=== PATIENT | female | born 1985 | race Caucasian/White ===

== ENCOUNTER 2017-08-28 13:18 | Inpatient (IN) | payer OTHER ==
[2017-08-28] MEDS: LACTATED RINGER'S 1,000 ML IV ×2 (13:57→23:57)
[2017-08-28 13:59] LABS: ADD MAN DIFF? NO
[2017-08-28 14:00] LABS: ABNORMAL IP MESSAGE 1; BASOPHILS % 0.3 % (0.0-2.0); HEMATOCRIT 37.6 % (37.0-47.0); HEMOGLOBIN 12.9 g/dl (12.0-16.0); LYMPHOCYTES # 0.5 10^3/ul (0.8-2.9); LYMPHOCYTES % 5.2 % (15.0-51.0); MEAN CORPUSCULAR HEMOGLOBIN 31.4 pg (29.0-33.0); MEAN CORPUSCULAR HGB CONC 34.3 g/dl (32.0-37.0); MEAN CORPUSCULAR VOLUME 91.5 fl (82.0-101.0); MONOCYTE # 0.3 10^3/ul (0.3-0.9); MONOCYTES % 3.1 % (0.0-11.0); NEUTROPHILS % 90.8 % (39.0-77.0); PLATELET COUNT 213 10^3/UL (140-415); RED BLOOD COUNT 4.11 10^6/ul (4.20-5.40); RED CELL DISTRIBUTION WIDTH 13.1 % (11.5-14.5)
[2017-08-28 14:00] LABS: WHITE BLOOD COUNT 9.9 10^3/ul (4.8-10.8)
[2017-08-28] MEDS ORDERED: OXYTOCIN 30 UNITS/LR 500 ML IV ×2 (14:00→20:30)
[2017-08-28] MEDS ORDERED: METHYLERGONOVINE 0.2 MG INJ IM ×2 (14:00→20:30)
[2017-08-28] MEDS ORDERED: CEFAZOLIN 2 GM/50 ML (PMX) 50 ML IV (14:00)
[2017-08-28] MEDS ORDERED: CARBOPROST 250 MCG INJ IM ×2 (14:00→20:30)
[2017-08-28] MEDS ORDERED: MISOPROSTOL 200 MCG TAB PR ×2 (14:00→20:30)
[2017-08-28 14:01] LABS: POSITIVE DIFF @See below
[2017-08-28 14:20] LABS: INR 0.91; PROTIME 12.3 Sec (11.9-14.9)
[2017-08-28 14:21] LABS: PARTIAL THROMBOPLASTIN TIME 25.1 Sec (25.0-35.0)
[2017-08-28] MEDS ORDERED: morphine SULFATE/PF (10 MG/10 ML) INJ (15:14)
[2017-08-28] MEDS ORDERED: PHENYLephrine (100 MCG/ML) 5ML SYG (15:14)
[2017-08-28] MEDS ORDERED: ONDANSETRON 4 MG INJ (15:14)
[2017-08-28] MEDS ORDERED: OXYTOCIN 10 UNIT INJ (15:14)
[2017-08-28] MEDS ORDERED: BUPIVACAINE 0.75%/DEXT (SPINAL) 2 ML INJ (15:14)
[2017-08-28] MEDS: OXYTOCIN 30 UNITS/LR 500 ML IV ×3 (16:33→20:07)
[2017-08-28] MEDS ORDERED: morphine 2 MG INJ IV (17:00)
[2017-08-28] MEDS ORDERED: ONDANSETRON 4 MG INJ IV (17:00)
[2017-08-28] MEDS ORDERED: NALOXONE (0.4 MG/ML) INJ IV (17:00)
[2017-08-28] MEDS: KETOROLAC 30 MG INJ IV (19:52)
[2017-08-28] MEDS: DIPHENHYDRAMINE 50 MG INJ IV (19:53)
[2017-08-28] MEDS ORDERED: METHYLERGONOVINE 0.2 MG TAB PO (20:30)
[2017-08-28] MEDS ORDERED: LANOLIN 7 GM TUBE TOP (20:30)
[2017-08-28] MEDS ORDERED: HYDROCODONE/APAP (5/325) TAB PO (20:30)
[2017-08-28] MEDS: SENNA/DOCUSATE NA (8.6MG/50MG) TAB PO (21:21)
[2017-08-28] MEDS: CEFAZOLIN 1 GM/50 ML (PMX) 50 ML IVPB (21:21)
[2017-08-28] MEDS: IBUPROFEN 800 MG TAB PO (22:00)
[2017-08-28 22:01] LABS: RAPID PLASMA REAGIN NONREACTIVE (NR)
[2017-08-29] MEDS: KETOROLAC 30 MG INJ IV ×3 (01:45→13:58)
[2017-08-29] MEDS: LACTATED RINGER'S 1,000 ML IV ×3 (04:07→20:07)
[2017-08-29] MEDS: IBUPROFEN 800 MG TAB PO ×3 (06:00→21:20)
[2017-08-29 08:14] LABS: ADD MAN DIFF? NO
[2017-08-29 08:22] LABS: WHITE BLOOD COUNT 10.1 10^3/ul (4.8-10.8)
[2017-08-29 08:22] LABS: BASOPHILS % 0.2 % (0.0-2.0); EOSINOPHILS % 0.1 % (0.0-7.0); HEMATOCRIT 30.9 % (37.0-47.0); HEMOGLOBIN 10.5 g/dl (12.0-16.0); LYMPHOCYTES # 1.3 10^3/ul (0.8-2.9); LYMPHOCYTES % 12.3 % (15.0-51.0); MEAN CORPUSCULAR HEMOGLOBIN 31.2 pg (29.0-33.0); MEAN CORPUSCULAR VOLUME 91.7 fl (82.0-101.0); MEAN PLATELET VOLUME 10.2 fl (7.4-10.4); MONOCYTE # 0.6 10^3/ul (0.3-0.9); MONOCYTES % 5.4 % (0.0-11.0); NEUTROPHIL # 8.2 10^3/ul (1.6-7.5); NEUTROPHILS % 81.1 % (39.0-77.0); PLATELET COUNT 177 10^3/UL (140-415); RED BLOOD COUNT 3.37 10^6/ul (4.20-5.40); RED CELL DISTRIBUTION WIDTH 13.4 % (11.5-14.5)
[2017-08-29 08:40] LABS: ANION GAP 9 (8-16); BLOOD UREA NITROGEN 10 mg/dl (7-20); CALCIUM 8.4 mg/dl (8.4-10.2); CARBON DIOXIDE 26 mmol/L (21-31); CHLORIDE 107 mmol/L (97-110); CREATININE 0.54 mg/dl (0.44-1.00); GLUCOSE 91 mg/dl (70-220); POTASSIUM 3.7 mmol/L (3.5-5.1); SODIUM 138 mmol/L (135-144)
[2017-08-29] MEDS: SENNA/DOCUSATE NA (8.6MG/50MG) TAB PO ×2 (09:21→21:20)
[2017-08-29] MEDS: HYDROCODONE/APAP (5/325) TAB PO (17:09)
[2017-08-30] MEDS: HYDROCODONE/APAP (5/325) TAB PO ×3 (00:01→18:23)
[2017-08-30] MEDS: IBUPROFEN 800 MG TAB PO ×3 (05:50→20:37)
[2017-08-30] MEDS: SENNA/DOCUSATE NA (8.6MG/50MG) TAB PO ×2 (09:07→20:36)
[2017-08-30] MEDS: BISACODYL 10 MG SUPP PR (13:00)
[2017-08-30] MEDS: MAGNESIUM HYDROXIDE 30ML CUP PO (13:01)
[2017-08-30] MEDS: ENOXAPARIN 40 MG/0.4 ML SYG SC (13:54)
[2017-08-30] MEDS ORDERED: MAGNESIUM HYDROXIDE 30ML CUP PO (20:00)
[2017-08-31] MEDS: OXYCODONE/ACETAMINOPHEN (5/325) TAB PO (03:42)
[2017-08-31] MEDS: IBUPROFEN 800 MG TAB PO ×2 (05:35→13:56)
[2017-08-31] MEDS: SENNA/DOCUSATE NA (8.6MG/50MG) TAB PO (09:51)
[2017-08-31] MEDS: ENOXAPARIN 40 MG/0.4 ML SYG SC (09:52)
[2017-08-31] MEDS: MEASLES,MUMPS,RUBELLA VACCINE INJ SC* (09:54)
[2017-08-31 10:13] LABS: ADD MAN DIFF? NO
[2017-08-31 10:17] LABS: BASOPHILS % 0.1 % (0.0-2.0); EOSINOPHILS # 0.1 10^3/ul (0.0-0.5); EOSINOPHILS % 1.1 % (0.0-7.0); HEMATOCRIT 31.8 % (37.0-47.0); HEMOGLOBIN 10.7 g/dl (12.0-16.0); LYMPHOCYTES # 1.9 10^3/ul (0.8-2.9); LYMPHOCYTES % 25.9 % (15.0-51.0); MEAN CORPUSCULAR HEMOGLOBIN 31.9 pg (29.0-33.0); MEAN CORPUSCULAR HGB CONC 33.6 g/dl (32.0-37.0); MEAN CORPUSCULAR VOLUME 94.9 fl (82.0-101.0); MEAN PLATELET VOLUME 9.9 fl (7.4-10.4); MONOCYTE # 0.4 10^3/ul (0.3-0.9); MONOCYTES % 6.2 % (0.0-11.0); NEUTROPHIL # 4.7 10^3/ul (1.6-7.5); PLATELET COUNT 204 10^3/UL (140-415); RED BLOOD COUNT 3.35 10^6/ul (4.20-5.40); RED CELL DISTRIBUTION WIDTH 13.3 % (11.5-14.5)
[2017-08-31 10:17] LABS: WHITE BLOOD COUNT 7.1 10^3/ul (4.8-10.8)
[2017-08-31] MEDS: HYDROCODONE/APAP (5/325) TAB PO (12:21)
[2017-08-31] MEDS: DIPHTH/TET/ACEL PERTUSS (ADULT) 0.5 ML VIAL IM* (12:58)
== END 2017-08-31 14:30 | disposition home or self-care (01) | DRG 766 ==
LOC: OBT 13:18 → L-D 13:19 → OBT 13:32 → L-D 13:32 → PP1 20:43
PROVIDERS: Obstetrics & Gynecology
PROC: 10D00Z1 Extraction of Products of Conception, Low, Open Approach (ICD-10-PCS; principal; 2017-08-28 15:15)
DX: O34.211 Maternal care for low transverse scar from previous cesarean delivery (principal); Z37.0 Single live birth; Z3A.38 38 weeks gestation of pregnancy; O35.8XX0 Maternal care for other (suspected) fetal abnormality and damage, not applicable or unspecified
CPT/HCPCS: 80048; 85025; 85610; 85730; 86592; 86850; 86900; 86901; 90715; 94760; 99464